=== PATIENT | female | born 1995 | race Caucasian/White ===

== ENCOUNTER 2017-05-23 11:34 | Emergency (ER) | payer OTHER ==
[2017-05-23 11:49] VITALS: BP 110/56; PULSE 74; RESP 16; TEMP 98.3; O2SAT 100
[2017-05-23] MEDS ORDERED: SODIUM CHLOR 0.9% 1000 ML INJ 1,000 ML IV SCH (12:37)
[2017-05-23] MEDS ORDERED: LIDOCAINE VISCOUS 2% SOLN 15 ML UDC PO ONE (12:45)
[2017-05-23] MEDS ORDERED: ONDANSETRON HCL 4 MG/2 ML VIAL IVP ONE (12:45)
[2017-05-23] MEDS ORDERED: ALUMINUM/MAGNESIUM/SIMETH 30 ML CUP PO ONE (12:45)
[2017-05-23] MEDS ORDERED: SODIUM CHLORIDE 0.9% FLUSH 10 ML FLUSH IV FLUSH PRN (12:45)
[2017-05-23] MEDS ORDERED: FAMOTIDINE 20 MG/2 ML VIAL IV PUSH ONE (12:45)
--- NOTE | 2017-05-23 12:46 | PD ---
HPI Chief Complaint: Chest Pain Time Seen by Provider: 12:29 Travel History International Travel<30 days: No Contact w/Intl Traveler<30days: No Traveled to known affect area: No History of Present Illness HPI 22-year-old female referred here by urgent care for complaints of chest discomfort and mid upper abdominal pain. Patient states 3 day history of nausea without vomiting, and diarrhea over the past 3 days. Patient denies vomiting or heartburn. She states the pain in her chest is why she went in today. She is not concerned about the diarrhea, as she feels this will improve with time, but she was seen today due to the chest discomfort. She states is worse when she takes a deep breath or moves. She denies fever, chills, weakness , shortness of breath, or productive cough. She has no upper respiratory symptoms. Pain is 7 out of 10. She has no known drug allergies. FOR[facility]LY [facility] Past Medical History Immunizations Current: Yes : 0 Social History Alcohol Use: No Tobacco Use: No Substance Use: No Allergies-Medications (Allergen,Severity, Reaction): Coded Allergies: No Known Allergies (Unverified Adverse Reaction, Unknown, 05/23/17) Reported Meds & Prescriptions Reported Meds & Active Scripts Active Loperamide (Loperamide HCl) 2 Mg Cap 2 Mg PO DIRECTED PRN One capsule after each loose stool. Not to exceed 8 capsules per day. Omeprazole 40 Mg Cap 40 Mg PO DAILY Review of Systems Except as stated in HPI: all other systems reviewed are Neg General / Constitutional: No: Fever, Chills Eyes: No: Visual changes HENT: No: Headaches, Vertigo (See history of present illness), Lightheadedness , Sore Throat, Rhinitis, Rhinorrhea, Congestion, Nosebleed, Neck Stiffness, Neck Pain, Dental Difficulties, Earache Cardiovascular: Positive: Chest Pain or Discomfort Respiratory: No: Cough, Shortness of Breath Gastrointestinal: Positive: Nausea, Diarrhea, Abdominal Pain, Changes in Bowel Habits, No: Vomiting, Hematemesis, Hematochezia, Constipation, Indigestion, Dysphagia, Loss of Appetite Genitourinary: No: Urgency, Frequency, Dysuria Musculoskeletal: No: Pain Skin: No Rash Neurologic: No: Weakness Psychiatric: No: Depression Endocrine: No: Polydipsia Hematologic/Lymphatic: No: Easy Bruising Physical Exam Narrative GENERAL: Patient appears in no obvious distress. She is ambulatory without difficulty. SKIN: Warm and dry. Normal color. Normal turgor HEAD: Atraumatic. Normocephalic. EYES: Pupils equal and round. No scleral icterus. No injection or drainage. ENT: No nasal bleeding or discharge. Mucous membranes pink and moist. Pharynx is clear. Airways patent. TMs are clear. NECK: Trachea midline. Supple nontender. CARDIOVASCULAR: Regular rate and rhythm. No murmurs gallops or rubs per RESPIRATORY: No accessory muscle use. Clear to auscultation. Breath sounds equal bilaterally. GASTROINTESTINAL: Abdomen soft, mild epigastric tenderness with palpation, nondistended. Bowel sounds are present in all quadrants. No CVA tenderness. Hepatic and splenic margins not palpable. MUSCULOSKELETAL: Extremities without clubbing, cyanosis, or edema. No obvious deformities. NEUROLOGICAL: Awake and alert. No obvious cranial nerve deficits. Motor grossly within normal limits. Five out of 5 muscle strength in the arms and legs. Normal speech. PSYCHIATRIC: Appropriate mood and affect; insight and judgment normal. Data Data Last Documented VS Vital Signs Date Time Temp Pulse Resp B/P (MAP) Pulse Ox O2 Delivery O2 Flow Rate FiO2 05/23/17 11:49 98.3 74 16 110/56 (74) 100 Orders Orders Complete Blood Count With Diff (05/23/17 11:51) Basic Metabolic Panel (Bmp) (05/23/17 11:51) Act Partial Throm Time (Ptt) (05/23/17 11:51) Prothrombin Time / Inr (Pt) (05/23/17 11:51) Electrocardiogram (05/23/17 ) Chest, Pa & Lat (05/23/17 ) Iv Access Insert/Monitor (05/23/17 12:37) Ecg Monitoring (05/23/17 12:37) Oximetry (05/23/17 12:37) Ondansetron Inj (Zofran Inj) (05/23/17 12:45) Sodium Chlor 0.9% 1000 Ml Inj (Ns 1000 M (05/23/17 12:37) Sodium Chloride 0.9% Flush (Ns Flush) (05/23/17 12:45) Famotidine Inj (Pepcid Inj) (05/23/17 12:45) Al-Mag Hy-Si 40-40-4 Mg/Ml Liq (Mag-Al P (05/23/17 12:45) Lidocaine 2% Viscous (Xylocaine 2% Visco (05/23/17 12:45) Labs Laboratory Tests Test 05/23/17 12:50 White Blood Count 5.8 TH/MM3 Red Blood Count 4.51 MIL/MM3 Hemoglobin 14.1 GM/DL Hematocrit 41.3 % Mean Corpuscular Volume 91.4 FL Mean Corpuscular Hemoglobin 31.2 PG Mean Corpuscular Hemoglobin Concent 34.1 % Red Cell Distribution Width 12.4 % Platelet Count 232 TH/MM3 Mean Platelet Volume 7.8 FL Neutrophils (%) (Auto) 55.1 % Lymphocytes (%) (Auto) 34.5 % Monocytes (%) (Auto) 9.6 % Eosinophils (%) (Auto) 0.5 % Basophils (%) (Auto) 0.3 % Neutrophils # (Auto) 3.2 TH/MM3 Lymphocytes # (Auto) 2.0 TH/MM3 Monocytes # (Auto) 0.6 TH/MM3 Eosinophils # (Auto) 0.0 TH/MM3 Basophils # (Auto) 0.0 TH/MM3 CBC Comment DIFF FINAL Differential Comment Prothrombin Time 11.3 SEC Prothromb Time International Ratio 1.1 RATIO Activated Partial Thromboplast Time 26.3 SEC Blood Urea Nitrogen 6 MG/DL Creatinine 0.63 MG/DL Random Glucose 89 MG/DL Calcium Level 9.0 MG/DL Sodium Level 138 MEQ/L Potassium Level 4.0 MEQ/L Chloride Level 106 MEQ/L Carbon Dioxide Level 28.0 MEQ/L Anion Gap 4 MEQ/L Estimat Glomerular Filtration Rate 119 ML/MIN [facility] Medical Decision Making Medical Screen Exam Complete: Yes Emergency Medical Condition: Yes Differential Diagnosis Esophagitis. Gastritis. Diarrhea. Abdominal pain. Chest pain Narrative Course Patient is medically stable at time of exam. Labs ordered including CBC, coagulation studies, and BMP. IV access is obtained Patient is given 20 mg famotidine IV, 4 mg Zofran IV, and 1000 mL of normal saline bolus. GI cocktail is given p.o. Chest x-ray and EKG are ordered. EKG shows sinus rhythm with no significant changes. Chest x-ray is unremarkable. Labs are all within normal limits. Patient is reassessed and found to be stable, but denies real improvement. Patient is felt to be medically stable for discharge at this time. Patient is felt to have a gastritis/esophagitis with diarrhea from viral syndrome. Patient is put on omeprazole 40 mg daily #30. Patient is given loperamide 2 mg as directed for diarrhea as well #30. Patient is to rest, push fluids, and return if symptoms worsen in the next several days. Work note for today is given Diagnosis Primary Impression: Diarrhea Qualified Codes: R19.7 - Diarrhea, unspecified Additional Impression: Gastritis Qualified Codes: K29.00 - Acute gastritis without bleeding Patient Instructions: Acute Diarrhea (ED), Diet for Stomach Ulcers and Gastritis (ED), General Instructions Additional Instructions: Patient is felt to be medically stable for discharge at this time. Patient is felt to have a gastritis/esophagitis with diarrhea from viral syndrome. Patient is put on omeprazole 40 mg daily #30. Patient is given loperamide 2 mg as directed for diarrhea as well #30. Patient is to rest, push fluids, and return if symptoms worsen in the next several days. Work note for today is given Med/Other Pt SpecificInfo: Prescription(s) given Scripts Loperamide (Loperamide) 2 Mg Cap 2 MG PO DIRECTED Y for DIARRHEA, #30 CAP 0 Refills One capsule after each loose stool. Not to exceed 8 capsules per day. Prov: José Miguel Garcia MD 05/23/17 Omeprazole (Omeprazole) 40 Mg Cap 40 MG PO DAILY, #30 CAP 0 Refills Prov: José Miguel Garcia MD 05/23/17 Disposition: 01 DISCHARGE HOME Condition: Stable Олег Eastman May 23, 2017 12:46
--- NOTE | 2017-05-23 12:54 | RADRPT ---
EXAM DATE/TIME: 05/23/2017 12:32 [place] COMPARISON: No previous studies available for comparison. INDICATIONS : Chest pain. MEDICAL HISTORY : None. SURGICAL HISTORY : None. ENCOUNTER: Initial ACUITY: 3 days PAIN SCORE: 4/10 LOCATION: Left upper chest FINDINGS: PA and lateral views of the chest demonstrate the lungs to be symmetrically aerated without evidence of mass, infiltrate or effusion. The cardiomediastinal contours are unremarkable. Osseous structure s are intact. CONCLUSION: No acute disease. Wilber Johnson MD on May 23, 2017 at 12:52 Board Certified Radiologist. This report was verified electronically.
[2017-05-23 13:05] LABS: AUTOMATED NEUTROPHIL # 3.2 TH/MM3 (1.8-7.7); BASOPHIL % 0.3 % (0.0-2.0); EOSINOPHIL % 0.5 % (0.0-4.0); HEMATOCRIT 41.3 % (35.0-46.0); HEMOGLOBIN 14.1 GM/DL (11.6-15.3); LYMPH % 34.5 % (9.0-44.0); MEAN CELL VOLUME 91.4 FL (80.0-100.0); MEAN CORPUSCULAR HEMOGLOBIN 31.2 PG (27.0-34.0); MEAN CORPUSCULAR HGB CONC 34.1 % (32.0-36.0); MEAN PLATELET VOLUME 7.8 FL (7.0-11.0); MONO % 9.6 % (0.0-8.0); MONOCYTE # 0.6 TH/MM3 (0-0.9); NEUT % 55.1 % (16.0-70.0); PLATELET COUNT 232 TH/MM3 (150-450); RED BLOOD COUNT 4.51 MIL/MM3 (4.00-5.30); RED CELL DISTRIBUTION WIDTH 12.4 % (11.6-17.2); WHITE BLOOD COUNT 5.8 TH/MM3 (4.0-11.0)
[2017-05-23 13:14] LABS: INTERNATIONAL NORMALIZED RATIO 1.1 RATIO; PROTHROMBIN TIME - PATIENT 11.3 SEC (9.8-11.6)
[2017-05-23 13:21] LABS: CREATININE 0.63 MG/DL (0.50-1.00)
[2017-05-23] MEDS ORDERED: OMEP40CA2 PO (13:31)
[2017-05-23] MEDS ORDERED: LOPE2CAP PO (13:33)
== END 2017-05-24 07:27 | disposition home or self-care (01) ==
LOC: NEPD 11:34
DX: R19.7 Diarrhea, unspecified (principal); K29.70 Gastritis, unspecified, without bleeding; R07.9 Chest pain, unspecified; Z79.899 Other long term (current) drug therapy
CPT/HCPCS: 71046; 80048; 85025; 85610; 85730; 96361; 96374; 96375; 99284; J2405; J7030